=== PATIENT | female | born 1980 | race Caucasian/White ===

== ENCOUNTER 2025-01-07 15:02 | Outpatient (REF) | payer OTHER, SELFPAY ==
[2025-01-09 13:08] LABS: Age Gdln ACOG Testing Note (.); IGP, Aptima HPV, rfx 16/18,45 Note (.)
== END 2025-01-07 15:03 | disposition home or self-care (01) ==
LOC: LAB 15:02
PROVIDERS: Visit Provider Nurse Practitioner Family
DX: Z01.419 Encounter for gynecological examination (general) (routine) without abnormal findings (principal)
CPT/HCPCS: 87624; 88175